=== PATIENT | male | born 1965 | race Two or more races ===

== ENCOUNTER 2018-07-24 17:55 | Emergency (ER) | payer SELFPAY ==
[~2018-07-24] VITALS: Ht 177.8 cm; Wt 83.9 kg
[2018-07-24 18:02] VITALS: BP 128/85
--- NOTE | 2018-07-24 18:29 | NUR ---
pt rec'd to er c/o pain left foot xray done AWAITING EVALUATION BY ER PROVIDER.
--- NOTE | 2018-07-24 19:00 | NUR ---
Patient discharged to home in stable condition. Written and verbal after care instructions given. Patient verbalizes understanding of instruction.
== END 2018-07-24 19:03 | disposition home or self-care (01) ==
LOC: ER 17:59
DX: S93.492A Sprain of other ligament of left ankle, initial encounter (principal); I10 Essential (primary) hypertension; F32.9 Major depressive disorder, single episode, unspecified; W01.198A Fall on same level from slipping, tripping and stumbling with subsequent striking against other object, initial encounter; Y93.9 Activity, unspecified; Y92.89 Other specified places as the place of occurrence of the external cause; Y99.8 Other external cause status
CPT/HCPCS: 73610-TC